=== PATIENT | male | born 1990 | race Two or more races ===

== ENCOUNTER 2018-08-03 15:46 | Emergency (ER) | payer SELFPAY ==
--- NOTE | 2018-08-03 17:14 | ED Physician Chart ---
ED Chief Complaint/HPI - Patient Information Date Seen:: 08/03/18 Time Seen:: 16:52 Chief Complaint:: shoulder pain & L head pain History of Present Illness:: shoulder pain & L head pain in an incarcerated individual who was encouraged to get out of a bunk bed. According to the police, he was sharpening a spoon or making a shank. He was, according to them, slow to respond to their commands. No LOC. C/o left shoulder pain initially. While in the ER, he c/o R shoulder pain as well. C/o left christian pain. States that his tetanus shot is up to date. Allergies:: Allergies Allergy/AdvReac Type Severity Reaction Status Date / Time No Known Allergies Allergy Verified 08/03/18 16:51 Vitals:: Vital Signs - 8 hr 08/03/18 16:52 Temp 97.2 F HR 86 RR 18 BP 125/70 O2 Sat % 97 Historian:: Patient, Other (polic officer) Review:: Nurse's Note Reviewed ED Review of Systems - Review of Systems General/Constitutional: No fever, No chills, No weight loss, No weakness, No diaphoresis, No edema, No loss of appetite Skin: Other (left christian scratch.) Head: No headache, No light-headedness Eyes: No loss of vision, No pain, No diplopia ENT: No earache, No nasal drainage, No sore throat, No tinnitus Neck: No neck pain, No swelling, No thyromegaly, No stiffness, No mass noted Cardio Vascular: No chest pain, No palpitations, No PND, No orthopnea, No edema Pulmonary: No SOB, No cough, No sputum, No wheezing GI: No nausea, No vomiting, No diarrhea, No pain, No melena, No hematochezia, No constipation, No hematemesis G/U: No dysuria, No frequency, No hematuria Musculoskeletal: Bone or joint pain Endocrine: No polyuria, No polydipsia Psychiatric: No prior psych history, No depression, No anxiety, No suicidal ideation Hematopoietic: No bruising, No lymphadenopathy Allergic/Immuno: No urticaria, No angioedema Neurological: No syncope, No focal symptoms, No weakness, No paresthesia, No headache, No seizure, No dizziness, No confusion, No vertigo ED Past Medical History - Past Medical History Obtainable: Yes Past Medical History: No significant medical hx, Other (up to date on tetanus shot) Family Medical History - Family Member Mother History Unknown: Yes ED Physical Exam - Physical Examination General/Constitutional: Awake, Well-developed, well-nourished, Alert, No distress, GCS 15, Non-toxic appearing, Ambulatory Other Head comments:: left christian scratch. not a laceration. no bruising. minimal to non-existent swelling. no bony stepoffs. no evidence of entrapment. normal occlusion. Eyes: Lids, conjuctiva normal, PERRL, EOMI Skin: No rash, No skin lesions, No ecchymosis, Well hydrated Other Skin comments:: left christian scratch. not a laceration. no bruising. minimal to non-existent swelling. ENMT: External ears, nose nl, TM canals nl, Nasal exam nl, Lips, teeth, gums nl , Oropharynx nl, Tonsils nl Neck: Nontender, No nuchal rigidity Respiratory: Nl effort/Exclusion, Clear to Auscultation, No Wheeze/Rhonchi/Rales Cardio Vascular: RRR, No murmur, gallop, rubs, NL S1 S2 GI: No tenderness/rebounding/guarding, No organomegaly, No hernia, Normal BS's, Nondistended, No mass/bruits, No McBurney tenderness : No CVA tenderness Extremities: Full ROM, normal strength in all extremities, No edema Other Extremities comments:: patient is in handcuffs. c/o left shoulder pain and right shoulder pain to palpation. no crepitance, swelling or deformity present. NV intact. Neuro/Psych: Alert/oriented, Normal sensory exam, Normal motor strength, Judgement/insight normal, Mood normal, Normal gait, No focal deficits Misc: Normal back, No paraspinal tenderness ED Assessment - Assessment General Assessment: xrays of right and left shoulder negative by my reading. ED Septic Shock - . Is Septic Shock (SBP<90, OR Lactate>4 mmol\L) present?: No - <6hrs of presentation: Vital Signs: Vital Signs - 8 hr 08/03/18 16:52 Temp 97.2 F HR 86 RR 18 BP 125/70 O2 Sat % 97 ED Reassessment (Disposition) - Reassessment Reassessment Condition:: Unchanged - Diagnosis Diagnosis:: Musculoskeletal shoulder complaints Left head scratch - Aftercare/Follow up Instructions Aftercare/Follow-Up Instructions:: Refer to Discharge Instructions Notes:: follow up with erasto Kerr as needed Medication Prescribed:: none - Patient Disposition Discharge/Transfer:: Long-Term/Penitentiary Condition at Disposition:: Stable, Unchanged
[2018-08-03] MEDS ORDERED: Bacitracin pkt 1 gm Pkt TP ONE (17:23)
--- NOTE | 2018-08-04 08:54 | Diagnostic Imaging Report ---
Left shoulder (3 views) HISTORY: Pain, trauma No acute bony abnormalities. No fractures. No dislocation. IMPRESSION: 1. No acute bony abnormalities
--- NOTE | 2018-08-04 08:55 | Diagnostic Imaging Report ---
Right shoulder (3 views) HISTORY: Pain, trauma No acute bony abnormalities. No fractures. No dislocation. IMPRESSION: 1. No acute abnormalities
== END 2018-08-03 18:00 | disposition still patient (30) ==
LOC: ER 15:46
DX: S00.81XA Abrasion of other part of head, initial encounter (principal); M25.512 Pain in left shoulder; M25.511 Pain in right shoulder; W06.XXXA Fall from bed, initial encounter; Y93.89 Activity, other specified; Y92.89 Other specified places as the place of occurrence of the external cause; Y99.8 Other external cause status
CPT/HCPCS: 73030-TC-LT; 73030-TC-RT; Z7502